=== PATIENT | female | born 1990 | race Two or more races ===

== ENCOUNTER 2017-09-14 13:36 | Outpatient (CLI) | payer OTHER ==
[~2017-09-14 13:36] MED LIST: HUMALOG100 UNIT/1
== END 2017-09-14 16:28 | disposition home or self-care (01) ==
LOC: NST 13:36
DX: Z34.93 Encounter for supervision of normal pregnancy, unspecified, third trimester (principal); O24.013 Pre-existing type 1 diabetes mellitus, in pregnancy, third trimester

== ENCOUNTER 2017-09-21 07:54 | Outpatient (CLI) | payer OTHER | END 2017-09-21 08:52 | disposition home or self-care (01) | LOC: NST 07:54 | DX: Z34.03 Encounter for supervision of normal first pregnancy, third trimester (principal) ==

== ENCOUNTER 2017-09-22 08:24 | Outpatient (CLI) | payer OTHER | END 2017-09-22 10:29 | disposition home or self-care (01) | LOC: LAB 08:24 | DX: O24.919 Unspecified diabetes mellitus in pregnancy, unspecified trimester (principal) ==

== ENCOUNTER 2017-09-28 09:45 | Outpatient (CLI) | payer OTHER | END 2017-09-28 10:42 | disposition home or self-care (01) | LOC: NST 09:45 | DX: Z34.83 Encounter for supervision of other normal pregnancy, third trimester (principal) ==

== ENCOUNTER 2017-10-05 16:11 | Outpatient (CLI) | payer OTHER | END 2017-10-05 18:07 | disposition home or self-care (01) | LOC: NST 16:11 | DX: Z34.83 Encounter for supervision of other normal pregnancy, third trimester (principal) ==

== ENCOUNTER 2017-10-08 08:49 | Outpatient (CLI) | payer OTHER | END 2017-10-08 09:41 | disposition home or self-care (01) | LOC: NST 08:49 | DX: Z34.83 Encounter for supervision of other normal pregnancy, third trimester (principal) ==

== ENCOUNTER 2017-10-12 12:42 | Inpatient (IN) | payer OTHER ==
[~2017-10-12] VITALS: Ht 162.6 cm; Wt 3.6 kg
[2017-10-27] MEDS ORDERED: LABETALOL200 MG/200 IV (22:34)
[2017-10-27] MEDS ORDERED: ALDOMET500 MG PO (22:34)
[2017-10-27] MEDS ORDERED: PRENATAL TABLE1 EAC1 PO (22:34)
== END 2017-10-31 10:52 | DRG 765 ==
LOC: LDR 10-27 20:58 → OB/GYN 10-28 09:56 → LDR 11-23 12:41
PROC: 10D00Z1 Extraction of Products of Conception, Low, Open Approach (ICD-10-PCS; principal; 2017-10-27)
PROC: 4A1HXCZ Monitoring of Products of Conception, Cardiac Rate, External Approach (ICD-10-PCS; 2017-10-27)
PROC: 4A033R1 Measurement of Arterial Saturation, Peripheral, Percutaneous Approach (ICD-10-PCS; 2017-10-27)
DX: O76 Abnormality in fetal heart rate and rhythm complicating labor and delivery (principal); O60.14X0 Preterm labor third trimester with preterm delivery third trimester, not applicable or unspecified; Z3A.36 36 weeks gestation of pregnancy; Z37.0 Single live birth

== ENCOUNTER 2017-10-15 12:28 | Outpatient (CLI) | payer OTHER | END 2017-10-15 13:24 | disposition home or self-care (01) | LOC: NST 12:28 | DX: Z34.83 Encounter for supervision of other normal pregnancy, third trimester (principal) ==

== ENCOUNTER 2017-10-18 09:43 | Outpatient (CLI) | payer OTHER | END 2017-10-18 10:38 | disposition home or self-care (01) | LOC: NST 09:43 | DX: O24.913 Unspecified diabetes mellitus in pregnancy, third trimester (principal); Z34.83 Encounter for supervision of other normal pregnancy, third trimester ==

== ENCOUNTER 2017-10-23 08:43 | Outpatient (CLI) | payer OTHER | END 2017-10-23 09:47 | disposition home or self-care (01) | LOC: NST 08:43 | DX: O24.913 Unspecified diabetes mellitus in pregnancy, third trimester (principal); Z34.83 Encounter for supervision of other normal pregnancy, third trimester ==

== ENCOUNTER 2018-01-30 14:51 | Outpatient (CLI) | payer OTHER ==
[~2018-01-30 14:51] MED LIST changes: +ALDOMET500 MG PO; +LABETALOL200 MG/200 IV; +PRENATAL TABLE1 EAC1 PO
== END 2018-01-30 14:59 | disposition home or self-care (01) ==
LOC: SONOGRAMA 14:51
DX: N64.89 Other specified disorders of breast (principal)

== ENCOUNTER 2018-02-08 11:59 | Outpatient (CLI) | payer OTHER | END 2018-02-08 13:23 | disposition home or self-care (01) | LOC: SONOGRAMA 11:59 | DX: N60.11 Diffuse cystic mastopathy of right breast (principal); N60.12 Diffuse cystic mastopathy of left breast; N64.52 Nipple discharge ==

== ENCOUNTER 2018-02-20 07:24 | Outpatient (CLI) | payer OTHER | END 2018-02-20 07:36 | disposition home or self-care (01) | LOC: LAB 07:24 | DX: N18.9 Chronic kidney disease, unspecified (principal) ==

== ENCOUNTER 2018-05-01 07:48 | Outpatient (CLI) | payer OTHER | END 2018-05-01 08:12 | disposition home or self-care (01) | LOC: LAB 07:48 | DX: E10.65 Type 1 diabetes mellitus with hyperglycemia (principal); E78.2 Mixed hyperlipidemia; E03.8 Other specified hypothyroidism ==

== ENCOUNTER 2018-05-01 10:11 | Outpatient (CLI) | payer OTHER | END 2018-05-01 10:19 | disposition home or self-care (01) | LOC: RAD 501 10:11 | DX: I10 Essential (primary) hypertension (principal) ==

== ENCOUNTER 2018-05-17 06:43 | Day surgery (SDC) | payer OTHER ==
[~2018-05-17 06:43] MED LIST changes: +VASOTEC PO
== END 2018-05-17 13:20 | disposition home or self-care (01) ==
LOC: CIR.AMB 06:43
DX: D24.1 Benign neoplasm of right breast (principal)

== ENCOUNTER → 2019-01-22 14:53 | Outpatient (CLI) | payer OTHER | END | disposition home or self-care (01) | LOC: LAB 14:53 | DX: J11.1 Influenza due to unidentified influenza virus with other respiratory manifestations (principal); J11.89 Influenza due to unidentified influenza virus with other manifestations ==

== ENCOUNTER 2019-06-02 06:58 | Outpatient (CLI) | payer OTHER | END 2019-06-02 07:07 | disposition home or self-care (01) | LOC: LAB 06:58 | DX: E11.65 Type 2 diabetes mellitus with hyperglycemia (principal); E78.00 Pure hypercholesterolemia, unspecified ==

== ENCOUNTER 2019-06-11 07:51 | Outpatient (CLI) | payer OTHER | END 2019-06-11 07:57 | disposition home or self-care (01) | LOC: SONOGRAMA 07:51 | DX: R10.84 Generalized abdominal pain (principal); N18.3 Chronic kidney disease, stage 3 (moderate); R31.29 Other microscopic hematuria ==

== ENCOUNTER → 2019-07-16 12:22 | Outpatient (CLI) | payer OTHER | END | disposition home or self-care (01) | LOC: LAB 12:22 | DX: J11.1 Influenza due to unidentified influenza virus with other respiratory manifestations (principal) ==

== ENCOUNTER 2019-10-13 09:46 | Emergency (ER) | payer OTHER ==
[~2019-10-13] VITALS: Ht 340.4 cm; Wt 68.0 kg
[2019-10-13] MEDS ORDERED: ZITHROMAX500 MG PO (12:32)
== END 2019-10-13 13:16 | disposition home or self-care (01) ==
LOC: ER 09:46
DX: B33.8 Other specified viral diseases (principal); B96.0 Mycoplasma pneumoniae [M. pneumoniae] as the cause of diseases classified elsewhere

== ENCOUNTER 2019-11-14 10:53 | Outpatient (CLI) | payer OTHER ==
[~2019-11-14 10:53] MED LIST changes: +ZITHROMAX500 MG PO
== END 2019-11-14 15:00 | disposition home or self-care (01) ==
LOC: LAB 10:53
DX: J11.1 Influenza due to unidentified influenza virus with other respiratory manifestations (principal); R05 Cough